=== PATIENT | female | born 2000 ===

== ENCOUNTER 2020-04-08 18:41 | Emergency (ER) | payer SELFPAY ==
[~2020-04-08] VITALS: Ht 157.5 cm; Wt 51.6 kg
[2020-04-08 18:44] VITALS: BP 117/76
== END 2020-04-08 19:33 | disposition left against medical advice (07) ==
LOC: ED 19:00
DX: R09.81 Nasal congestion (principal); R19.7 Diarrhea, unspecified; Z53.21 Procedure and treatment not carried out due to patient leaving prior to being seen by health care provider